=== PATIENT | female | born 1960 | race Caucasian/White ===

== ENCOUNTER → 2019-11-22 | Outpatient (CLI) | payer OTHER ==
[~2019-11-22] MED LIST: ALLO100; ALLO300 PO; ALPR1 PO; ASPI325; BUSP15 PO; BYSTOLIC PO; CEPH250A; ENOX100I SQ; ERGO400 PO; FISH1000; FISH1000 PO; FOLI400; HYDCHL12.5; HYDCHL12.5 PO; HYDCHL25 PO; LAVAP17G PO; METF500; METF500 PO; METO10 PO; METO100ER; METO50 PO; MULVITA PO; OMEP20ER; POTA8 PO; POTCIT10; POTCIT10 PO; POTCIT5 PO; Synthroid25 MCG PO; TAMS.4ER PO; WARF2 PO; WARF3 PO; WARF4 PO; WARF5 PO; Zyloprim300 MG PO
[2019-11-22 14:58] LABS: BASOPHILS ABSOLUTE AUTO 0.05 K/mm3 (0.00-0.23); BASOPHILS PERCENT AUTO 1 % (0-2); EOSINOPHILS ABSOLUTE AUTO 0.33 K/mm3 (0.00-0.68); EOSINOPHILS PERCENT AUTO 3 % (0-6); Hematocrit 41.3 % (33.0-51.0); Hemoglobin 14.1 g/dL (11.5-16.0); IMMATURE GRAN ABSOLUTE AUTO 0.03 K/mm3 (0.00-0.10); IMMATURE GRAN PERCENT AUTO 0 % (0-1); LYMPHOCYTES ABSOLUTE AUTO 4.39 K/mm3 (0.84-5.20); LYMPHOCYTES PERCENT AUTO 45 % (21-46); MONOCYTES ABSOLUTE AUTO 0.85 K/mm3 (0.16-1.47); MONOCYTES PERCENT AUTO 9 % (4-13); Mean Corpuscular HGB 32.4 pg (26.0-34.0); Mean Corpuscular HGB Conc 34.1 g/dL (31.5-36.5); Mean Corpuscular Volume 95 fL (80-100); Mean Platelet Volume 9.6 fL (9.1-12.4); NEUTROPHILS PERCENT AUTO 42 % (41-73); Platelet Count 298 K/mm3 (150-400); RDW Coefficient Variation 12.6 % (11.7-14.2); RDW Standard Deviation 43.7 fL (35.1-46.3); Red Blood Cell Count 4.35 M/mm3 (3.80-5.20); White Blood Cell Count 9.75 K/mm3 (4.00-11.30)
[2019-11-22 15:09] LABS: Anion Gap 6 mmol/L (6-16); Blood Urea Nitrogen 11 mg/dL (8-24); Bun/Creatinine Ratio 16.2 (12.0-20.0); CO2, Blood 29 mmol/L (21-32); Calcium, Blood 9.1 mg/dL (8.5-10.1); Chloride, Blood 105 mmol/L (98-108); Creatinine, Blood 0.68 mg/dL (0.40-1.00); Glomerular Filtration Rate >60 (60-); Glucose, Blood 144 mg/dL (70-99); Potassium, Blood 3.6 mmol/L (3.5-5.5); Sodium, Blood 140 mmol/L (136-145)
== END | disposition home or self-care (01) ==
LOC: LAB SHORT 13:44 → LAB 13:44
PROVIDERS: Hospitalist
DX: R10.32 Left lower quadrant pain (principal)
CPT/HCPCS: 80048; 85025

== ENCOUNTER → 2020-05-17 | Outpatient (CLI) | payer OTHER ==
[2020-05-17 13:07] LABS: Alanine Aminotransfer (ALT/SGP 135 U/L (12-78); Albumin, Blood 3.6 g/dL (3.4-5.0); Albumin/Globulin Ratio 0.8 (0.8-1.8); Alk Phos 86 U/L (50-136); Anion Gap 9 mmol/L (6-16); Aspartate Aminotrans (AST/SGOT 126 U/L (12-37); Bilirubin, Total 0.6 mg/dL (0.1-1.0); Blood Urea Nitrogen 13 mg/dL (8-24); Bun/Creatinine Ratio 19.1 (12.0-20.0); CHOL/HDL RATIO 3.1; CO2, Blood 27 mmol/L (21-32); Calcium, Blood 9.9 mg/dL (8.5-10.1); Chloride, Blood 107 mmol/L (98-108); Cholesterol 212 mg/dL (50-200); Creatinine, Blood 0.68 mg/dL (0.40-1.00); Globulin, Blood 4.5 g/dL (2.2-4.0); Glomerular Filtration Rate >60 (60-); Glucose, Blood 104 mg/dL (70-99); HDL Cholesterol 69 mg/dL (>39); LDL/HDL RATIO 1.5; Low Density Lipoprotein Chol 103 mg/dL (0-110); Potassium, Blood 3.8 mmol/L (3.5-5.5); Sodium, Blood 143 mmol/L (136-145); Total Protein, Blood 8.1 g/dL (6.4-8.2); Triglycerides 199 mg/dL (30-160); Very Low Density Lipoprot Chol 39 mg/dL (6-32)
== END | disposition home or self-care (01) ==
LOC: OLS 09:36 → LAB SHORT 09:36
PROVIDERS: Hospitalist
DX: E11.9 Type 2 diabetes mellitus without complications (principal); E03.9 Hypothyroidism, unspecified; E78.00 Pure hypercholesterolemia, unspecified; I10 Essential (primary) hypertension
CPT/HCPCS: 36415; 80053; 80061; 82043; 83036; 84439; 84443

== ENCOUNTER → 2020-12-16 | Outpatient (CLI) | payer OTHER ==
[2020-12-16 20:04] LABS: Albumin, Blood 3.9 g/dL (3.4-5.0); Albumin/Globulin Ratio 0.8 (0.8-1.8); Bilirubin, Direct 0.1 mg/dL (0.0-0.3); Bilirubin, Indirect 0.3 mg/dL (0.1-0.7); Bilirubin, Total 0.4 mg/dL (0.1-1.0); Globulin, Blood 4.6 g/dL (2.2-4.0); Total Protein, Blood 8.5 g/dL (6.4-8.2)
== END | disposition home or self-care (01) ==
LOC: LAB 17:49 → LAB SHORT 17:49
PROVIDERS: Hospitalist
DX: Z12.72 Encounter for screening for malignant neoplasm of vagina (principal); K76.0 Fatty (change of) liver, not elsewhere classified
CPT/HCPCS: 80076; G0145

== ENCOUNTER 2021-09-23 07:00 | Day surgery (SDC) | payer OTHER ==
[~2021-09-23] VITALS: Ht 154.9 cm; Wt 97.0 kg
[~2021-09-23 07:00] MED LIST changes: -BUSP15 PO; +Buspirone HCl15 MG PO; -POTCIT5 PO
--- NOTE | 2021-09-23 08:02 | NUR ---
INTO [facility] ADMISSION STARTED.. Ambulatory in Day Surgery. History, Chart, Medications and Allergies reviewed before start of procedure. Patient confirms NPO status and agrees with scheduled surgery. Patient States Post-Procedure ride home has been arranged.
--- NOTE | 2021-09-23 09:18 | NUR ---
09/23/21 0918 Benton Samuels NO ANTIBIOTICS ORDERED
--- NOTE | 2021-09-23 10:00 | NUR ---
PT TO STEP ALERT AND ORIENTED. DENIES PAIN OR NAUSEA. INCISIONAL SITE TO SCALP, CDI c ABX OINT IN PLACE. IV DC'D, CATH INTACT AND PRESSURE DRESSING APPLIED. GIVEN DC INSTRUCTIONS. PT VERBALIZES AN UNDERSTANDING s QUESTIONS. DRESSES SELF INDEPENDENTLY. WC TO RESTROOM. OTD IN NAD VIA WC.
== END 2021-09-23 22:52 | disposition home or self-care (01) ==
LOC: ORSCMMR 07:00 → ORD 08:45 → ORSCMMR 08:45
PROVIDERS: Surgery
PROC: 0JB00ZZ Excision of Scalp Subcutaneous Tissue and Fascia, Open Approach (ICD-10-PCS; principal; 2021-09-23 08:45)
DX: R22.0 Localized swelling, mass and lump, head (principal); E11.42 Type 2 diabetes mellitus with diabetic polyneuropathy; I10 Essential (primary) hypertension; E03.9 Hypothyroidism, unspecified; E78.00 Pure hypercholesterolemia, unspecified; K76.0 Fatty (change of) liver, not elsewhere classified; F41.1 Generalized anxiety disorder; E87.6 Hypokalemia; D50.9 Iron deficiency anemia, unspecified; Z79.84 Long term (current) use of oral hypoglycemic drugs; Z79.899 Other long term (current) drug therapy; Z79.82 Long term (current) use of aspirin; E66.01 Morbid (severe) obesity due to excess calories; Z68.41 Body mass index [BMI] 40.0-44.9, adult
CPT/HCPCS: 82947; A9270; J0171; J7120

== ENCOUNTER → 2022-01-16 | Outpatient (CLI) | payer OTHER ==
[2022-01-16 10:20] LABS: BASOPHILS ABSOLUTE AUTO 0.06 K/mm3 (0.00-0.23); BASOPHILS PERCENT AUTO 1 % (0-2); EOSINOPHILS ABSOLUTE AUTO 0.53 K/mm3 (0.00-0.68); EOSINOPHILS PERCENT AUTO 6 % (0-6); Hemoglobin 14.1 g/dL (11.5-16.0); IMMATURE GRAN ABSOLUTE AUTO 0.02 K/mm3 (0.00-0.10); IMMATURE GRAN PERCENT AUTO 0 % (0-1); LYMPHOCYTES ABSOLUTE AUTO 4.49 K/mm3 (0.84-5.20); LYMPHOCYTES PERCENT AUTO 49 % (21-46); MONOCYTES ABSOLUTE AUTO 0.81 K/mm3 (0.16-1.47); MONOCYTES PERCENT AUTO 9 % (4-13); Mean Corpuscular HGB Conc 34.4 g/dL (31.5-36.5); Mean Corpuscular Volume 93 fL (80-100); Mean Platelet Volume 9.5 fL (9.1-12.4); NEUTROPHILS ABSOLUTE AUTO 3.18 K/mm3 (1.96-9.15); NEUTROPHILS PERCENT AUTO 35 % (41-73); Platelet Count 224 K/mm3 (150-400); RDW Coefficient Variation 13.2 % (11.7-14.2); RDW Standard Deviation 44.9 fL (35.1-46.3); Red Blood Cell Count 4.41 M/mm3 (3.80-5.20); White Blood Cell Count 9.09 K/mm3 (4.00-11.30)
[2022-01-16 10:30] LABS: Albumin, Blood 3.7 g/dL (3.4-5.0); Albumin/Globulin Ratio 0.8 (0.8-1.8); Bilirubin, Total 0.5 mg/dL (0.1-1.0); Bun/Creatinine Ratio 14.8 (12.0-20.0); Calcium, Blood 9.4 mg/dL (8.5-10.1); Creatinine, Blood 0.88 mg/dL (0.40-1.00); Globulin, Blood 4.5 g/dL (2.2-4.0); Potassium, Blood 4.1 mmol/L (3.5-5.5); Total Protein, Blood 8.2 g/dL (6.4-8.2)
== END ==
LOC: LAB SHORT 10:14
PROVIDERS: General Practice
DX: M79.605 Pain in left leg (principal)
CPT/HCPCS: 80053; 85025; 85379

== ENCOUNTER → 2023-03-23 | Outpatient (CLI) | payer OTHER | LOC: LAB 16:54 → LAB SHORT 16:54 | DX: R06.02 Shortness of breath (principal); Z86.718 Personal history of other venous thrombosis and embolism | CPT/HCPCS: 85379 ==

== ENCOUNTER → 2024-05-10 | Outpatient (CLI) | payer OTHER ==
[2024-05-10 15:51] LABS: Anion Gap 12 mmol/L (3-11); Blood Urea Nitrogen 22 mg/dL (8-24); Bun/Creatinine Ratio 31.5 (12.0-20.0); CHOL/HDL RATIO 2.6; CO2, Blood 25 mmol/L (21-32); Calcium, Blood 9.9 mg/dL (8.5-10.1); Chloride, Blood 108 mmol/L (98-108); Cholesterol 180 mg/dL (50-200); Free Thyroxine 0.91 ng/dL (0.70-1.60); Glomerular Filtration Rate 98 (60-); Glucose, Blood 105 mg/dL (70-99); HDL Cholesterol 68 mg/dL (>39); LDL/HDL RATIO 1.2; Low Density Lipoprotein Chol 79 mg/dL (0-110); Potassium, Blood 3.7 mmol/L (3.5-5.5); Sodium, Blood 141 mmol/L (136-145); Triglycerides 165 mg/dL (30-160); Very Low Density Lipoprot Chol 33 mg/dL (6-32)
[2024-05-10 17:39] LABS: Creatinine, Urine Random 95.3 mg/dL (27.00-270.00)
[2024-05-10 17:42] LABS: Microalb/Creat Ratio UR, Rand 9.622 mg/g (0.000-30.000); Microalbumin, Random Urine 9.17 mg/L (0.000-20.000)
== END | disposition home or self-care (01) ==
LOC: LAB 07:50 → LAB SHORT 07:50
PROVIDERS: Hospitalist
DX: E11.69 Type 2 diabetes mellitus with other specified complication (principal); E78.00 Pure hypercholesterolemia, unspecified; I10 Essential (primary) hypertension; E03.9 Hypothyroidism, unspecified
CPT/HCPCS: 80048; 80061; 82043; 82570; 83036; 84439; 84443

== ENCOUNTER → 2024-07-11 | Outpatient (CLI) | payer OTHER ==
[2024-07-11 13:17] LABS: Albumin, Blood 3.7 g/dL (3.4-5.0); Albumin/Globulin Ratio 0.9 (0.8-1.8); Bilirubin, Direct 0.1 mg/dL (0.0-0.3); Bilirubin, Indirect 0.3 mg/dL (0.1-0.7); Bilirubin, Total 0.4 mg/dL (0.1-1.0); Globulin, Blood 4.3 g/dL (2.2-4.0)
== END | disposition home or self-care (01) ==
LOC: LAB 12:13 → LAB SHORT 12:13
PROVIDERS: Hospitalist
DX: R74.01 Elevation of levels of liver transaminase levels (principal)
CPT/HCPCS: 80076

== ENCOUNTER → 2024-11-07 | Outpatient (CLI) | payer OTHER ==
[2024-11-07 21:25] LABS: Percent Saturation 16.4 % (15.0-50.0)
== END ==
LOC: LAB SHORT 17:55 → LAB 17:55
PROVIDERS: Hospitalist
DX: R53.83 Other fatigue (principal); E55.9 Vitamin D deficiency, unspecified
CPT/HCPCS: 82306; 82607; 82728; 83540; 83550

== ENCOUNTER 2024-12-11 06:12 | Day surgery (SDC) | payer OTHER ==
[~2024-12-11] VITALS: Ht 154.9 cm; Wt 87.0 kg
[2024-12-11 07:56] VITALS: BP 135/100
== END 2024-12-11 08:10 | disposition home or self-care (01) ==
LOC: ORSCSDS 06:12
PROC: 08RJ3JZ Replacement of Right Lens with Synthetic Substitute, Percutaneous Approach (ICD-10-PCS; principal; 2024-12-11)
DX: E11.36 Type 2 diabetes mellitus with diabetic cataract (principal); H25.813 Combined forms of age-related cataract, bilateral; H52.201 Unspecified astigmatism, right eye; Z79.84 Long term (current) use of oral hypoglycemic drugs; Z79.899 Other long term (current) drug therapy; Z79.85 Long-term (current) use of injectable non-insulin antidiabetic drugs; F41.9 Anxiety disorder, unspecified; I10 Essential (primary) hypertension; E78.00 Pure hypercholesterolemia, unspecified; E03.9 Hypothyroidism, unspecified; E66.01 Morbid (severe) obesity due to excess calories; Z68.41 Body mass index [BMI] 40.0-44.9, adult

== ENCOUNTER → 2025-01-08 | Outpatient (CLI) | payer OTHER ==
[~2025-01-08] MED LIST changes: +Aspir 8181 MG PO; +MELO7.5 PO; +NEURONTIN300 MG PO; +OZEMPIC1 MG/0.72 SQ
== END | disposition home or self-care (01) ==
LOC: LAB 16:00 → LAB SHORT 16:00
DX: R10.9 Unspecified abdominal pain (principal)
CPT/HCPCS: 87086

== ENCOUNTER → 2025-07-24 | Outpatient (CLI) | payer OTHER ==
[2025-07-24 15:03] LABS: Anion Gap 8 mmol/L (3-11); Blood Urea Nitrogen 17 mg/dL (8-24); CHOL/HDL RATIO 3.4; CO2, Blood 32 mmol/L (21-32); Calcium, Blood 9.5 mg/dL (8.5-10.1); Chloride, Blood 102 mmol/L (98-108); Cholesterol 188 mg/dL (50-200); Creatinine, Blood 0.75 mg/dL (0.40-1.00); Glucose, Blood 94 mg/dL (70-99); HDL Cholesterol 55 mg/dL (>39); LDL/HDL RATIO 1.2; Low Density Lipoprotein Chol 65 mg/dL (0-110); Potassium, Blood 4.0 mmol/L (3.5-5.5); Sodium, Blood 138 mmol/L (136-145); Thyroid Stimulating Hormone 3.800 uIU/mL (0.360-4.800); Triglycerides 340 mg/dL (30-160); Very Low Density Lipoprot Chol 68 mg/dL (6-32)
[2025-07-24 15:28] LABS: Creatinine, Urine Random 75.0 mg/dL (27.00-270.00); Microalb/Creat Ratio UR, Rand 8.52 mg/g (0.000-30.000); Microalbumin, Random Urine 6.39 mg/L (0.000-20.000)
== END | disposition home or self-care (01) ==
LOC: LAB SHORT 08:45 → LAB 08:45
PROVIDERS: Hospitalist
DX: E78.00 Pure hypercholesterolemia, unspecified (principal); E03.9 Hypothyroidism, unspecified; I10 Essential (primary) hypertension; E11.42 Type 2 diabetes mellitus with diabetic polyneuropathy
CPT/HCPCS: 80048; 80061; 82043; 82570; 84439; 84443